=== PATIENT | female | born 1975 | race Two or more races ===

== ENCOUNTER → 2017-05-09 | Emergency (ER) | payer OTHER ==
[~2017-05-09] VITALS: Ht 175.3 cm; Wt 97.5 kg
== END | disposition home or self-care (01) ==
LOC: ER 07:42
DX: K52.89 Other specified noninfective gastroenteritis and colitis (principal)

== ENCOUNTER 2017-05-17 07:25 | Outpatient (CLI) | payer OTHER | END 2017-05-17 07:33 | disposition home or self-care (01) | LOC: SONOGRAMA 07:25 | DX: R10.10 Upper abdominal pain, unspecified (principal); R10.30 Lower abdominal pain, unspecified ==

== ENCOUNTER 2017-10-18 17:18 | Emergency (ER) | payer OTHER ==
[~2017-10-18] VITALS: Ht 175.3 cm; Wt 99.8 kg
== END 2017-10-19 00:55 | disposition home or self-care (01) ==
LOC: ER 17:18
DX: K29.70 Gastritis, unspecified, without bleeding (principal)

== ENCOUNTER 2018-02-01 09:17 | Outpatient (CLI) | payer OTHER | END 2018-02-01 09:28 | disposition home or self-care (01) | LOC: RAD 09:17 | DX: I10 Essential (primary) hypertension (principal) ==

== ENCOUNTER 2018-06-23 10:01 | Outpatient (CLI) | payer OTHER | END 2018-06-23 10:59 | disposition home or self-care (01) | LOC: RAD 10:01 | DX: M54.5 Low back pain (principal); M54.2 Cervicalgia ==

== ENCOUNTER 2021-08-10 09:04 | Outpatient (CLI) | payer OTHER | END 2021-08-10 09:12 | disposition home or self-care (01) | LOC: RAD 09:04 | PROVIDERS: ATTEND Chiropractor | DX: M53.1 Cervicobrachial syndrome (principal) ==